=== PATIENT | female | born 1990 | race Caucasian/White ===

== ENCOUNTER 2021-02-27 13:27 | Emergency (ER) | payer OTHER, SELFPAY ==
[2021-02-27 15:42] VITALS: BP 108/70; PULSE 82; RESP 16; TEMP 36.7; O2SAT 96; BMI 18.3
[2021-02-27 16:47] LABS: SARS Covid-2 Antigen Negative (Negative)
--- NOTE | 2021-02-27 17:14 | W.ED.GENADLT ---
HPI - General Adult General: Chief complaint: General Medical Stated complaint: L RIB PAIN, COUGH, GIVEN Z-PACK ON 02.14.21 Time Seen by Provider: 02/27/21 15:34 History of Present Illness: HPI narrative: Patient is a 30-year-old female comes to the ED with cough. Patient says she has been having upper respiratory symptoms for the past 3 weeks. She was seen at [facility] on February [facility] and diagnosed with costochondritis. She also couple weeks ago was put on a Z-Manuel and prednisone and cough did not improve. She states that her cough is productive with a white sputum. She says last night she was coughing and coughed so hard she felt a sharp pain in the left side of her rib. She is now having some pleuritic left rib pain along with chest wall pain as well. Associated symptoms: Deny chest pain, dyspnea, headache(s), nausea, rash, palpitations or vomiting Review of Systems Const: Denies: fever(s), chills or fatigue Eyes: Denies: change in vision or eye discomfort ENMT: Denies: throat pain, odynophagia, nasal discharge or nasal congestion Card: Denies: chest pain, palpitations, edema, swelling of feet/ankles, dyspnea on exertion or orthopnea Resp: Reports: productive cough and pain on inspiration (Pleuritic left rib pain); Denies: dyspnea or non-productive cough GI: Denies: abdominal pain, nausea, vomiting, diarrhea, constipation or hematochezia : Denies: flank pain, dysuria or hematuria Musc: Denies: neck pain, back pain or extremity swelling Skin/Breast: Denies: rash or new lesions Neuro: Denies: headache(s), numbness in extremities or weakness in extremities PFS ED PFSH: Medical History Abnormal uterine bleeding Bipolar disorder Surgical History History of appendectomy (~01/16/13) Laparoscopic. Performed by Dr. Oneal at [facility] in [place], [place]. History of bunionectomy (~2000) History of section (~08/15/17) Repeat LTCS. Performed by Dr. Cortes at [facility] in [facility] History of laparoscopy (~02/21/11) Ovarian cystectomy and Dye study. Performed by Dr. Zepeda. History of melanoma excision (~2009) History of umbilical hernia repair (~09/25/13) Laparoscopic with mesh. 10 x 9.5 cm intra-abdominal mesh placed. Performed by Dr. Antunez at [facility] in [place], [place]. Previous section (~06/22/08) Primary section. Performed by Dr. Faria. Documented low transverse incision with 2 layer closure. Patient progressed to complete dilation and was unable to deliver with pushing. Vacuum attempted and was unsuccessful. OP presentation. Family History Father Lung cancer Thyroid condition Mother Thyroid condition Grandmother Thyroid condition maternal Diabetes maternal Colon cancer Paternal Ovarian cancer Maternal and paternal Grandfather Thyroid condition Lung cancer Paternal Family/Other Ovarian cancer Paternal aunt Breast cancer paternal aunt Unknown Patient denies medical problems Denies family history of:hypertension, heart disease, stroke, hypercholesterolemia, or uterine cancer Social History Smoking and tobacco status: current every day smoker Alcohol intake: current Alcohol intake frequency: holidays/special occasions only History of recent travel: No Physical Exam Const: COMMON NORMALS: no acute distress, patient oriented x3, healthy appearing and alert GENERAL APPEARANCE: cooperative and comfortable HENMT: COMMON NORMALS: normocephalic HEAD & SCALP: normocephalic MOUTH: Normal oral and palatal mucosa present THROAT: posterior oropharynx normal and uvula midline Neck/C-Spine: COMMON NORMALS: supple GENERAL: Yes normal visual inspection Chest: CHEST: Yes tenderness rib (Left 5, 6 rib tenderness) and costochondral junction (Tenderness upon palpation) Resp: COMMON NORMALS: normal respiratory effort, No retractions, No use of accessory muscles and clear to auscultation bilaterally EFFORT & INSPECTION: Yes able to speak in complete sentences, No tachypneic, No respiratory distress and No labored AUSCULTATION: clear to auscultation bilaterally Cardio: COMMON NORMALS: regular rate, regular rhythm, S1 normal heart sound present, S2 normal heart sound present, No gallops present (Cardio), No clicks present (Cardio), No murmurs present (Cardio) and Peripheral pulses 2+ throughout RATE: regular rate RHYTHM: regular rhythm HEART SOUNDS: S1 normal heart sound present and S2 normal heart sound present PERIPHERAL PULSES: Peripheral pulses 2+ throughout GI: COMMON NORMALS: Normal to inspection, nondistended, normoactive bowel sounds present, Soft to palpation, non-tender and no masses PALPATION: Yes Soft to palpation : COMMON NORMALS: Yes no CVA tenderness BLADDER/KIDNEY EXAM: Yes no CVA tenderness Back/Pelvis: COMMON NORMALS: no CVA tenderness Extremity: COMMON NORMALS: normal to inspection Neuro: COMMON NORMALS: patient oriented x3 and moves all extremities SENSORIUM/ORIENTATION: Yes alert Skin: GENERAL SKIN EXAM: dry skin Course Vital Signs: Vital signs: Vital Signs Temperature 98.1 F 02/27/21 15:42 Pulse Rate 67 02/27/21 19:00 Respiratory Rate 20 H 02/27/21 19:00 Blood Pressure 108/72 02/27/21 19:00 Pulse Oximetry 97 02/27/21 19:00 MDM - General Adult MDM Narrative: Medical decision making narrative: Patient is a 30-year-old female comes to the ED with pleuritic chest wall pain. She was seen by her PCP several days ago and diagnosed costochondritis. She has had an upper respiratory viral illness for the past 3 weeks and has been treated with azithromycin and prednisone previously. Her cough has improved but she has tenderness to palpation of her anterior chest wall. Patient is not in any respiratory distress and appears nontoxic. Chest x-ray showed no acute findings. I have ordered an EKG for patient but she refused to get an EKG. Patient was given a dose of Toradol and discharged home. She is diagnosed with costochondritis and told to follow-up with her PCP in 7 days reevaluation. Return ED precautions given. Patient understood agree with plan. Lab Data: Labs: Lab Results 02/27/21 Range/Units 15:51 SARS-CoV-2 Ag (Rap id) Negative (Negative) Imaging Data^: CXR: Attestation: I personally reviewed and interpreted this imaging study as follows: Radiologist's impression: [address] [address] XRay Report Signed Patient: Jina Marin Unit #: [id number] : 1990 Age/Sex: 30 / F ADM Date: 02/27/21 Loc: ER Room/Bed: Attending Dr: Ordering Provider/Ordering MD: Anurag Gomez Date of Service: 02/27/21 Procedure(s): XR chest 1V portable [id number] Accession Number(s): [id number] Report Number: [id number] PROCEDURE INFORMATION: Exam: XR Chest Exam date and time: 02/27/2021 5:34 PM Age: 30 years old Clinical indication: Cough TECHNIQUE: Imaging protocol: XR of the chest. Views: 1 view. Total images: 1 COMPARISON: CT abdomen pelvis w con* [id number] 04/11/2018 12:38 AM FINDINGS: Lungs: Hyperinflation and query a history of reactive airway disease/asthma/chronic bronchitis. No visible active interstitial or alveolar airspace disease. Pleural spaces: Unremarkable. No pleural effusion. No pneumothorax. Heart/Mediastinum: Cardiac structures and configuration unremarkable. Bones/joints: Scoliosis. XR/XR chest 1V portable [id number] IMPRESSION: 1. Nonacute. 2. Hyperinflation. Dictated By: Murtaza Strong Signed By: Murtaza Strong Signed Date/Time: 02/27/211830 DD/ 29 EKG Data^: EKG 1: Computer generated interpretation: Chest X-Ray 02/27/21 17:34 IMPRESSION: 1. Nonacute. 2. Hyperinflation. Discharge Plan Discharge Patient Disposition: Home Clinical Impression: Costochondritis Condition: Stable Prescriptions: New Medrol (Manuel) 4 mg tablets,dose pack See Rx Instructions .ROUTE .COMPLEX Qty: 21 RF: 0 No Action benzonatate [Tessalon Perles] 100 mg capsule 100 mg PO TID PRN (Reason: cough) Qty: 30 RF: 0 alprazolam 0.5 mg tablet 0.5 mg PO QDAY PRN (Reason: anxiety) Qty: 30 RF: 2 aripiprazole 10 mg tablet 10 mg PO DAILY Qty: 30 RF: 2 estradiol-norethindrone acet 1-0.5 mg tablet 1 tab PO QDAY 28 Days Qty: 28 RF: 7 escitalopram oxalate [Lexapro] 20 mg tablet 20 mg PO QDAY 30 Days Qty: 30 RF: 3 trazodone 50 mg tablet 50 mg PO .COMPLEX Qty: 60 RF: 2 Discharge Orders: Discharge ED (Routine); Ordered 02/27/21 Ordered By: Anurag Gomez Referrals: Emperatriz Leyva MD [Primary Care Provider] - Discharge Diet: Regular Discharge Activity: Increase activity as tolerated Patient Instructions: Costochondritis (ED) Activity Restrictions/Additional Instructions: Follow-up with medical provider as directed Take medications as prescribed. Take [id number] ibuprofen 800 mg every 8 hours as needed for pain. Also apply cold pack on sore area of chest to help with symptoms as well. Return to the ER or your medical provider if condition worsens. Please read and understand discharge instructions. Thank you for choosing [facility] for your healthcare needs today. Please realize this is an emergency room and that we are providing you with a medical screening exam and this may not be complete and all inclusive of all the testing and or work up that you may need to determine your ailment or severity of your illness. It is very important that you follow up as instructed or that you return to the Emergency Department should you have concerns or if your condition changes or worsens in any way. Coding Level of Care Code ED Afloat [employer] for [facility] Exam Comprehensive
--- NOTE | 2021-02-27 17:34 | XRR_ITS ---
PROCEDURE INFORMATION: Exam: XR Chest Exam date and time: 02/27/2021 5:34 PM Age: 30 years old Clinical indication: Cough TECHNIQUE: Imaging protocol: XR of the chest. Views: 1 view. Total images: 1 COMPARISON: CT abdomen pelvis w con* [id number] 04/11/2018 12:38 AM FINDINGS: Lungs: Hyperinflation and query a history of reactive airway disease/asthma/chronic bronchitis. No visible active interstitial or alveolar airspace disease. Pleural spaces: Unremarkable. No pleural effusion. No pneumothorax. Heart/Mediastinum: Cardiac structures and configuration unremarkable. Bones/joints: Scoliosis. XR/XR chest 1V portable [id number] IMPRESSION: 1. Nonacute. 2. Hyperinflation.
[2021-02-27 17:49] VITALS: BP 111/68; PULSE 75; RESP 18; O2SAT 96
[2021-02-27 18:00] VITALS: BP 111/68; PULSE 75; RESP 18; O2SAT 100
[2021-02-27] MEDS: ketorolac 60 mg/2 mL INJ IM (18:56)
[2021-02-27 19:00] VITALS: BP 108/72; PULSE 67; RESP 20; O2SAT 97
[2021-03-01 13:33] LABS: Quest SARS-CoV-2 RNA NOT DETECTED (NOT DETECTED)
== END 2021-02-27 19:10 | disposition home or self-care (01) ==
PROVIDERS: Family Medicine; Emergency Provider Physician Assistant; PCP Family Medicine
DX: M94.0 Chondrocostal junction syndrome [Tietze] (principal); F17.210 Nicotine dependence, cigarettes, uncomplicated; Z20.822 Contact with and (suspected) exposure to COVID-19
CPT/HCPCS: 71045; 87426; 87635; 96372; J1885

== ENCOUNTER → 2021-08-18 14:07 | Outpatient (BNVA) | payer SELFPAY | PROVIDERS: PCP Family Medicine; Visit Provider Nurse Practitioner | DX: R39.9 Unspecified symptoms and signs involving the genitourinary system (principal) | CPT/HCPCS: 81000 ==

== ENCOUNTER → 2022-05-17 11:45 | Outpatient (BNVA) | payer MEDICAID, SELFPAY | PROVIDERS: PCP Family Medicine; Visit Provider Family Medicine | DX: R39.9 Unspecified symptoms and signs involving the genitourinary system (principal); F31.63 Bipolar disorder, current episode mixed, severe, without psychotic features; F10.10 Alcohol abuse, uncomplicated; Z72.0 Tobacco use; R30.0 Dysuria | CPT/HCPCS: 81000 ==

== ENCOUNTER → 2023-01-19 15:30 | Outpatient (BNVA) | payer MEDICAID, SELFPAY | PROVIDERS: PCP Family Medicine; Visit Provider Obstetrics & Gynecology | DX: Z01.419 Encounter for gynecological examination (general) (routine) without abnormal findings (principal) | CPT/HCPCS: 87624 ==

== ENCOUNTER → 2023-08-09 14:58 | Outpatient (BNVA) | payer MEDICAID, SELFPAY | PROVIDERS: PCP Family Medicine; Visit Provider Family Medicine | DX: N93.9 Abnormal uterine and vaginal bleeding, unspecified (principal); N94.6 Dysmenorrhea, unspecified; F10.10 Alcohol abuse, uncomplicated; J20.9 Acute bronchitis, unspecified | CPT/HCPCS: 80053; 85025 ==

== ENCOUNTER 2023-09-19 11:16 | Outpatient (CLI) | payer MEDICAID, SELFPAY ==
[2023-09-19 12:43] LABS: Anion Gap 13.2 (5-19); Blood Urea Nitrogen 13 mg/dL (6-20); Calcium 9.7 mg/dL (8.5-10.5); Carbon Dioxide 28 mmol/L (22-29); Chloride 100 mmol/L (98-107); Glomerular Filtration Rate 96.4 mL/min (90-130); Glucose 90 mg/dL (65-115); Osmolality Calculated 284 mOsm/kg (285-295); Potassium 4.2 mmol/L (3.5-5.1); Sodium 137 mmol/L (136-145)
== END 2023-09-19 11:17 | disposition home or self-care (01) ==
LOC: LAB 11:18
PROVIDERS: PCP Family Medicine; Visit Provider Surgery Plastic and Reconstructive Surgery
DX: F32.A Depression, unspecified (principal); F41.1 Generalized anxiety disorder
CPT/HCPCS: 36415; 80048

== ENCOUNTER → 2023-10-03 11:55 | Outpatient (BNVA) | payer MEDICAID, SELFPAY | PROVIDERS: PCP Family Medicine; Visit Provider Family Medicine | DX: D64.9 Anemia, unspecified (principal); D50.8 Other iron deficiency anemias; Z72.0 Tobacco use | CPT/HCPCS: 80053; 85025 ==

== ENCOUNTER 2024-05-08 11:08 | Outpatient (CLI) | payer MEDICAID, SELFPAY ==
--- NOTE | 2024-05-08 11:12 | XRR_ITS ---
PROCEDURE INFORMATION: Exam: XR Entire Spine Exam date and time: 05/08/2024 11:30 AM Age: 33 years old Clinical indication: Condition or disease; Scoliosis; Additional info: Progressive discomfort with HX of scoliosis TECHNIQUE: Imaging protocol: XR of the entire spine. Evaluation for scoliosis or surgical evaluation. Views: 2 or 3 views. COMPARISON: CR XR chest 1V portable [id number] 02/27/2021 5:35 PM FINDINGS: Bones/joints: Normal-appearing alignment on the lateral views. 14 degrees curvature convex to the left centered at the T4 level. 33 degrees curvature convex to the right centered at the T9 level. 7 degrees curvature convex to the left centered at the L2-L3 level. Soft tissues: Otherwise, unremarkable soft tissues. XR/XR scoliosis survey 4-5V [id number] IMPRESSION: 1. Scoliosis as above. 2. Otherwise, unremarkable lumbar spine.
== END 2024-05-08 11:09 | disposition home or self-care (01) ==
LOC: RAD 11:10
PROVIDERS: PCP Family Medicine; Visit Provider Family Medicine
DX: M41.9 Scoliosis, unspecified (principal)
CPT/HCPCS: 72083

== ENCOUNTER → 2024-05-14 14:25 | Outpatient (BNVA) | payer MEDICAID, SELFPAY | PROVIDERS: PCP Family Medicine; Visit Provider Nurse Practitioner Women's Health | DX: N93.9 Abnormal uterine and vaginal bleeding, unspecified (principal) | CPT/HCPCS: 82670; 83001; 83002; 84439; 84443; 84481 ==

== ENCOUNTER → 2025-05-21 10:29 | Outpatient (BNVA) | payer MEDICAID, SELFPAY | PROVIDERS: PCP Family Medicine; Visit Provider Family Medicine | DX: R39.9 Unspecified symptoms and signs involving the genitourinary system (principal) | CPT/HCPCS: 81000 ==